=== PATIENT | male | born 1970 | race Caucasian/White ===

== ENCOUNTER 2018-01-29 11:03 | Emergency (ER) | payer SELFPAY ==
[~2018-01-29] VITALS: Ht 167.6 cm; Wt 79.0 kg
[2018-01-29 11:38] LABS: BASOPHILS % 0.3 % (0.0-2.0); EOSINOPHILS % 0.7 % (0.0-5.0); HEMATOCRIT. 45.8 % (42.0-52.0); HEMOGLOBIN. 16.1 g/dL (14.0-18.0); LYMPHOCYTES % 10.3 % (20.0-50.0); MEAN CORPUSCULAR HEMOGLOBIN 31.1 pg (28.0-32.0); MEAN PLATELET VOLUME 9.3 fl (7.4-10.4); MONOCYTES % 4.2 % (2.0-8.0); NEUTROPHILS % 84.5 % (40.0-76.0); PLATELET 205 x1000/uL (130-400); RED CELL DISTRIBUTION WIDTH 13.7 % (11.6-14.6)
[2018-01-29 11:44] LABS: CHLORIDE 104 mEq/L (98-107)
[2018-01-29 11:46] LABS: INR 1.1; PARTIAL THROMBOPLASTIN TIME 28.9 sec (23.4-31.0); PROTHROMBIN TIME 11.4 sec (9.4-11.6)
[2018-01-29] MEDS ORDERED: KETOROLAC 30MG/ML VIAL IV STA ×2 (11:54→12:19)
[2018-01-29] MEDS ORDERED: MAGNESIUM/ALUMINUM HYDROXIDE/SIMETHICONE 30ML UDC PO STA ×2 (11:54→12:19)
[2018-01-29] MEDS ORDERED: VISCOUS LIDOCAINE 2% 15 ML UDC PO STA ×2 (11:54→12:19)
[2018-01-29] MEDS ORDERED: ONDANSETRON HCL 4MG/2ML VIAL IV STA ×2 (11:54→12:19)
[2018-01-29] MEDS ORDERED: DICYCLOMINE 10 MG/5 ML ORAL SYR PO STA ×2 (11:54→12:19)
[2018-01-29 14:25] VITALS: BP 104/6
== END 2018-01-29 14:50 | disposition home or self-care (01) ==
LOC: ER 11:17
DX: R10.9 Unspecified abdominal pain (principal); F17.200 Nicotine dependence, unspecified, uncomplicated
CPT/HCPCS: 36415; 71045; 80053; 83690; 84484; 85025; 85610; 85730; 93005; 96374; 96375; 99285; J1885; J2405; J7030; Z7610

== ENCOUNTER 2020-08-02 12:42 | Emergency (ER) | payer BC, MEDICAID ==
[~2020-08-02] VITALS: Ht 167.6 cm; Wt 82.0 kg
[2020-08-02 13:30] VITALS: BP 146/84
[2020-08-02] MEDS: KETOROLAC 60MG/2ML VIAL IM STA (13:30)
== END 2020-08-02 15:29 | disposition home or self-care (01) ==
LOC: ER 12:42
DX: R07.81 Pleurodynia (principal); W10.8XXA Fall (on) (from) other stairs and steps, initial encounter; Y93.01 Activity, walking, marching and hiking; Y92.9 Unspecified place or not applicable
CPT/HCPCS: 71101; 96372; 99283; J1885

== ENCOUNTER 2022-04-28 20:15 | Emergency (ER) | payer MEDICAID ==
[~2022-04-28] VITALS: Ht 167.6 cm; Wt 85.0 kg
[2022-04-28] MEDS ORDERED: IBUPROFEN 600MG TABLET PO ONE (21:45)
[2022-04-28] MEDS ORDERED: AMOX-494 MT (21:49)
[2022-04-28] MEDS ORDERED: CIPHCO LEFT EAR (21:49)
[2022-04-28] MEDS ORDERED: IBUP-2029 MT (21:49)
[2022-04-28 22:00] VITALS: BP 115/64
== END 2022-04-28 22:05 | disposition home or self-care (01) ==
LOC: ER 20:15
DX: H66.92 Otitis media, unspecified, left ear (principal)
CPT/HCPCS: 99282